=== PATIENT | male | born 1985 | race Caucasian/White ===

== ENCOUNTER 2021-02-13 08:22 | Outpatient (CLI) | payer OTHER ==
[2021-02-13 08:57] VITALS: BP 132/90
--- NOTE | 2021-02-13 08:57 | SLEEP CARE CONSULTATION ---
Information from patient questionnaire entered by Maira Chamorro. I have reviewed and concur with the information entered by Maira Chamorro. This document represents the service I personally performed and the decisions made by me, Yolanda Richardson ARNP. History of Present Illness Service Date and Time: 02/13/2021821 Reason for Visit: New patient Chief Complaint: reports: Unrefreshed sleep, Snoring, Excessive daytime sleepiness (especially in the late afternoon or evening), Observed pauses in breathing, Frequent awakenings at night. denies: Insomnia, Fatigue Date of Onset: at least 2 years Usual bedtime: 9:30 - 10:30 pm Time it takes to fall asleep: 5 minutes Snores at night: Yes Observed to quit breathing while asleep: Yes Sleeps alone due to snoring: No Number of times waking at night: 1-3 times Reasons for waking at night: reports: Choking, Snoring, Gasping for air, Bathroom Toss, Turn, or Twitch while sleeping: Yes Recalls having dreams: Yes Usually gets out of bed at: 5:30-6 am; weekends maybe [id number] Feels refreshed in the morning: No Morning headache: No Sleepy or fatigued during the day: Yes Ever fallen asleep while driving: No Takes day naps: Yes (maybe couple times a week) Dreams during day naps: No Prior sleep studies: No Additional HPI information: I had the pleasure of seeing ADRIEL COPPOLA today regarding the possibility of him having a sleep disorder. His current complaints are observed pauses in breathing, snoring and unrefreshed sleep. He states his significant other has noted his stop breathing and also making strange sounds that is loud snoring and mild gasping in his sleep. He will wake up coughing, choking too. He has a very physical job that is also mentally stressful. His significant other thinks it has been getting worse over the last 2 years. She is about to have a baby in just over a week. He has no family history of sleep disorders. 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 Patient is Single and lives in [place]. Have you smoked in the past 12 months: No (He vapes) Cigarettes per day (20/pack): 7 Years of smokin Quit date: 08/2018 Smoking Pack Years: 3.0 Alcohol use: Yes Alcohol amount and frequency: 1-2 drinks a month Caffeine use: Yes Caffeine amount and frequency: 2 cups every day Family History Family history of sleep disordered breathing: Yes Family Hx Sleep Apnea: Mother: Snoring, Father: Snoring, Sibling: Snoring, Grandparent: Snoring Allergies and Home Medications Drug allergies reviewed: Yes (NKDA) Home medication list reviewed: Yes (no daily medications) Review of Systems Weight gain over past 5 years: 20 Cardiovascular: denies: high blood pressure Gastrointestinal: reports: abdominal pain. denies: heartburn Neurological: denies: headaches Psychiatric: denies: Attention Deficit Hyperactivity, anxiety, depression Ear/Nose/Throat: reports: nose bleeds, wisdom teeth removed. denies: tonsillectomy Musculoskeletal: reports: neck pain, back pain Immunologic: denies: allergies to food or environment Physical Exam Blood Pressure: 132/90 Cuff size: long Heart Rate: 78 O2 Saturation: 98 Height: 5 ft 8 in Weight: 187 lb Body Mass Index: 28.4 BMI Classification: Overweight Neck circumference: 15 (inches) Mouth and throat: narrow oropharynx Soft palate: long Hard palate: arched Uvula visualization: 50% Mallampati Class II Tongue: normal in size Tonsils: 1+ Chin and jaw: normal size and position Neck: normal w/o lymphadenopathy or thyromegaly Heart: regular rate and rhythm Lungs: clear bilaterally Impression and Plan 1. Suspected Obstructive Sleep Apnea-Hypopnea Syndrome, as suggested by a history of loud and irregular snoring, observed cessation of breath while as leep, gasping or choking in sleep, frequent awakening during the night, unrefreshed sleep, and excessive daytime sleepiness. Narrow oropharynx and obesity are common predisposing factors for obstructive sleep apnea-hypopnea syndrome. I recommend proceeding to polysomnography to confirm the diagnosis and to assess severity. If the patient has significant sleep disordered breathing, a manual CPAP titration study will also be performed to find the optimal treatment pressure. I informed the patient of what the sleep studies involve and after some discussion, obtained agreement to proceed. The pathophysiology of obstructive sleep apnea-hypopnea syndrome was discussed with the patient and health risks of cardiovascular and cerebrovascular disease if not treated. Risks of drowsy driving discussed in detail and patient advised to avoid long distance driving and to socket puller at the first sign of drowsiness. Patient agreed to plan. * Schedule polysomnography +- manual CPAP titration study and return in 1-2 weeks after the study to discuss result and initiate therapy. * Avoid long distance driving or driving when feeling sleepy. * Avoid alcohol, sedative and muscle relaxant around bedtime. * Attempt to lose weight. * Review instructions provided by trained office staff on how to prepare for the sleep study. * Return for follow-up after sleep study completed. Counseling Topics: Weight loss health impact Visit Type: In Office Time Spent with Patient (minutes): 31 Provider Statement: I spent 100% of the Face to Face Visit with the patient with greater than 50% spent counseling the patient and coordination of care.
== END 2021-02-13 08:23 | disposition home or self-care (01) ==
LOC: SC 08:22
PROVIDERS: ATTEND Nurse Practitioner Family
DX: G47.10 Hypersomnia, unspecified (principal); R06.81 Apnea, not elsewhere classified; G47.8 Other sleep disorders; R06.83 Snoring; Z87.891 Personal history of nicotine dependence; E66.3 Overweight; Z68.28 Body mass index [BMI] 28.0-28.9, adult
CPT/HCPCS: 99203; 99212

== ENCOUNTER 2021-03-01 07:25 | Outpatient (CLI) | payer OTHER ==
--- NOTE | 2021-03-01 09:52 | Ultrasound Report ---
PROCEDURE: Abdomen Limited INDICATIONS: Epigastric abdominal pain TECHNIQUE: Real-time focused scanning was performed of the abdomen, with image documentation. COMPARISON: None FINDINGS: The gallbladder is normally distended without wall thickening or pericholecystic fluid. Th ere is layering sludge dependently. Several tiny mobile gallstones are present measuring up to 4-5 mm . Mildly increased hepatic parenchymal echogenicity indicative of at least mild hepatic steatosis. Vi sualized portions of the pancreas are within normal limits. There is no pancreatic or biliary ductal dilatation. The right kidney is unremarkable. IMPRESSION: Cholelithiasis and gallbladder sludge. No findings of cholecystitis. Mild hepatic steatosis. Reviewed by: Robb Lucas MD on 03/01/2021 9:51 AM PDT Approved by: Robb Lucas MD on 03/01/2021 9:51 AM PDT Station ID: [id number]
== END 2021-03-01 07:26 | disposition home or self-care (01) ==
LOC: DI 07:25
PROVIDERS: ATTEND Physician Assistant
DX: D58.0 Hereditary spherocytosis (principal); R10.13 Epigastric pain; R10.11 Right upper quadrant pain; R11.0 Nausea; K80.20 Calculus of gallbladder without cholecystitis without obstruction; K76.0 Fatty (change of) liver, not elsewhere classified

== ENCOUNTER 2021-04-12 20:30 | Outpatient (CLI) | payer OTHER | END 2021-04-12 20:31 | disposition home or self-care (01) | LOC: SC 20:30 | PROVIDERS: ATTEND Nurse Practitioner Family | DX: G47.10 Hypersomnia, unspecified (principal); G47.8 Other sleep disorders; R06.81 Apnea, not elsewhere classified; R06.83 Snoring; E66.3 Overweight; Z68.28 Body mass index [BMI] 28.0-28.9, adult | CPT/HCPCS: 95810 ==

== ENCOUNTER 2021-04-30 10:36 | Outpatient (CLI) | payer OTHER ==
--- NOTE | 2021-04-30 10:47 | SLEEP CARE CONSULTATION ---
Information from patient questionnaire entered by Maira Chamorro. I have reviewed and concur with the information entered by Maira Chamorro. This document represents the service I personally performed and the decisions made by , Yolanda Richardson ARNP. History of Present Illness Service Date and Time: 04/30/2021 1036 Initial G[place] Sleepiness Scale score: 11 (in 2020) Current Garrison Sleepiness Scale score: 10 Additional HPI information: ADRIEL COPPOLA returns via Telehealth visit for follow up and results of the recently performed polysomnography. The patient was informed of the following findings: Patient had no significant sleep disordered breathing with an AHI of 1.2 and a dennis oxygen saturation of 90%. I explained the pathophysiology behind obstructive sleep apnea. Patient does not have sleep apnea and was advised how weight gain could increase the risk of developing sleep apnea in the future. I strongly encouraged the patient to lose weight. Patient has light to moderate snoring. Snoring can be reduced by weight loss. Weight loss is best achieved with diet consult. Patient instructed to contact PCP for referral. Snoring can also be treated with an oral appliance from a dentist. Advised to check insurance coverage. In addition, an ENT evaluation can be do to see if other treatment is indicated. Patient counseled not drink alcohol less than 4 hours before bedtime as it can increase snoring and apnea. Patient was cautioned about risks of drowsy driving until sleepiness symptoms resolve. Sleep Study - Results Type of Sleep Study: Polysomnography Prior sleep studies: No Polysomnography/Home Sleep Study results: IMPRESSION: The quality of the study is good. The patient had normal sleep efficiency. The sleep architecture was normal as well. Respiratory monitoring showed no significant sleep disordered breathing (AHI = 1.2) or hypoxia (dennis oxygen saturation of 90%). The patient only slept supine during this study (supine AHI = 1.2; nonsupine = 0.00). Snore was light to moderate in intensity. There was no significant periodic leg movement of sleep. Cardiac rhythm was normal sinus rhythm without significant arrhythmia. No abnormal behavior (parasomnia) observed during the night. CONCLUSIONS and RECOMMENDATIONS: 1. This is a normal in-laboratory polysomnography. Allergies and Home Medications Home medication list reviewed: Yes (no changes) Review of Systems Review of systems same as previous: Yes (no changes) Physical Exam Vital signs obtained and entered by: Telehealth visit to reduce exposure during Covid pandemic Height: 5 ft 8 in Impression and Plan Snoring but no significant sleep disordered breathing. Patient advised that often weight loss will reduce snoring as well as apnea risk. An oral appliance can also be used for snoring. This would require a dental consultation. Patient cautioned not to use other online appliances as can cause bite issues. A list of accredited dentists in [facility] and one local dentist who makes oral appliances is available in the office. Patient is advised to check if insurance will cover. An ENT consult can also be helpful to determine if any other treatment is an option. * Attempt to lose weight * Avoid alcohol consumption near bedtime * The patient is cautioned about driving until sleepiness is completely resolved. * Return as needed. Counseling Topics: Weight loss health impact, Weight control Visit Type: Telehealth Video Video Type: VSee Patient Location: Home Location of Provider: Office Patient agrees and consents to this telehealth visit type: Yes Patient agrees to have their insurance billed: Yes Time Spent with Patient (minutes): 10 Provider Statement: I spent 100% of the Telehealth Video Call with the patient with greater than 50% spent counseling the patient and coordination of care.
== END 2021-04-30 10:37 | disposition home or self-care (01) ==
LOC: SC 10:36
PROVIDERS: ATTEND Nurse Practitioner Family
DX: R06.83 Snoring (principal)

== ENCOUNTER 2021-06-07 16:35 | Outpatient (CLI) | payer OTHER | END 2021-06-07 16:36 | disposition home or self-care (01) | LOC: COV 16:35 | PROVIDERS: ATTEND Surgery | DX: Z01.812 Encounter for preprocedural laboratory examination (principal); Z20.822 Contact with and (suspected) exposure to COVID-19 ==

== ENCOUNTER 2021-06-12 09:43 | Day surgery (SDC) | payer OTHER ==
[~2021-06-12 09:43] MED LIST: CEFAZOLIN SODIUM IN 0.9 % NACL 2 GM/100 ML BAG IV ONE
[2021-06-12] MEDS ORDERED: LACTATED RINGERS 1,000 ML IV ONE ×2 (09:53→13:13)
--- NOTE | 2021-06-12 10:24 | ANESTHESIA ---
Pre-Anesthesia VS, & Labs - Diagnosis chronic cholecystitis - Procedure lap jose Vital Signs: Temp Pulse Resp BP Pulse Ox 36.8 C 79 16 136/70 H 100 06/12/21 09:53 06/12/21 09:53 06/12/21 09:53 06/12/21 09:53 06/12/21 09:53 Height: 5 ft 8 in Weight (kg): 82.3 kg Body Mass Index: 27.6 BMI Classification: Overweight - NPO >8 hours Home Medications and Allergies Home Medications: Ambulatory Orders No Known Home Medications 06/04/21 No Known Home Medications 06/04/21 Allergies/Adverse Reactions: Allergies Allergy/AdvReac Type Severity Reaction Status Date / Time No Known Drug Allergies Allergy Verified 06/04/21 14:49 Anes History & Medical History - Anesthetic History Family history of Anesthesia Complications: Denies Family history of Malignant Hyperthermia: Denies - Medical History Cardiovascular: reports: None Pulmonary: reports: None Gastrointestinal: reports: None Urinary: reports: None Neuro: reports: None Musculoskeletal: reports: None Endocrine/Autoimmune: reports: None Blood Disorders: reports: Anemia (hereditary spherocytosis- no recent symptoms.) Skin: reports: None Smoking Status: Current every day smoker (vapes daily) Psychosocial: reports: No issues indicated History of Cancer?: No Exam General: Alert, Oriented x3, Cooperative, No acute distress Dental: WNL Mouth Openin Fingerbreadth Neck Mobility: Normal Mallampati classification: I Thyromental Distance: 4-6 cm Respiratory: Lungs clear, Normal breath sounds, No respiratory distress, No accessory muscle use Cardiovascular: Regular rate, Normal S1, Normal S2, No murmurs Mental/Cognitive Status: Alert/Oriented X3, Normal for patient Plan Anesthesia Type: General Consent for Procedure(s) Verified and Reviewed: Yes Code Status: Attempt Resuscitation ASA classification: 2-Mild systemic disease Is this case an emergency?: No
[2021-06-12] MEDS ORDERED: NALOXONE 0.4 MG/ML VIAL IVP PRN (10:33)
[2021-06-12] MEDS ORDERED: ATROPINE ABBOJECT 1 MG/10 ML SYRINGE IVP PRN (10:33)
[2021-06-12] MEDS ORDERED: HYDROmorphone 0.5 MG/0.5 ML SYRINGE IVP PRN (10:33)
[2021-06-12] MEDS ORDERED: MORPHINE 2 MG/ML CARPUJECT IVP PRN (10:33)
[2021-06-12] MEDS ORDERED: ONDANSETRON 4 MG/2 ML VIAL IVP PRN ×2 (10:33→13:22)
[2021-06-12] MEDS ORDERED: fentaNYL 100 MCG/2 ML VIAL IVP PRN (10:33)
[2021-06-12] MEDS ORDERED: BUPIVACAINE 0.25% PF 30 ML VIAL ONE (10:35)
[2021-06-12] MEDS ORDERED: LACTATED RINGERS 1,000 ML IV SCH (11:00)
[2021-06-12] MEDS ORDERED: MIDAZOLAM 2 MG/2 ML VIAL ONE (11:32)
[2021-06-12] MEDS ORDERED: fentaNYL 100 MCG/2 ML VIAL ONE (11:32)
[2021-06-12] MEDS ORDERED: PROPOFOL 200 MG/20 ML VIAL IVP ONE ×2 (11:32→12:39)
[2021-06-12] MEDS ORDERED: ROCURONIUM 50 MG/5 ML VIAL ONE (11:32)
[2021-06-12] MEDS ORDERED: LIDOCAINE-MPF 2% 5 ML VIAL ONE (11:32)
[2021-06-12] MEDS ORDERED: ONDANSETRON 4 MG/2 ML VIAL ONE ×2 (11:41→14:14)
[2021-06-12] MEDS ORDERED: DEXAMETHASONE 4 MG/ML VIAL ONE (11:41)
--- NOTE | 2021-06-12 11:45 | HISTORY & PHYSICAL EXAMINATION ---
Chief Complaint - Chief Complaint Chief Complaint: history epigastric/ ruq pain History of Present Illness - History Obtained From Records Reviewed: yes History obtained from: pt Exam Limitations: none - History of Present Illness HPI Comment/Other: He has had several attacks of biliary cholic. No signs or symptoms of choledocholithiasis History - Past Medical History Cardiovascular: reports: None Respiratory: reports: None Neuro: reports: None Endocrine/Autoimmune: reports: None GI: reports: None : reports: None HEENT: reports: Chronic vision loss Psych: reports: None Musculoskeletal: reports: None Derm: reports: None MRSA Hx?: No Meds/Allgy - Home Medications Home Medications: Ambulatory Orders Medication Instructions Recorded Confirmed No Known Home Medications 06/04/21 06/04/21 - Allergies Allergies/Adverse Reactions: Allergies Allergy/AdvReac Type Severity Reaction Status Date / Time No Known Drug Allergies Allergy Verified 06/04/21 14:49 Review of Systems - Other Findings Other Findings: 10 pt ros as above otherwise unremarkable Exam - Vital Signs Reviewed Vital Signs: Yes Vital Signs: Vital Signs x48h Temp Pulse Resp BP Pulse Ox 06/12/21 09:53 36.8 C 79 16 136/70 H 100 - Physical Exam General Appearance: positive: No acute distress, Alert Eyes Bilateral: positive: PERRL, EOMI, No scleral icterus ENT: positive: No signs of dehydration Neck: positive: No JVD Respiratory: positive: No respiratory distress, Breath sounds nml Cardiovascular: positive: Regular rate & rhythm Abdomen: positive: Non-tender, No distention Neurologic/Psychiatric: positive: Oriented x3 Conclusion/Plan - Problem List (1) Chronic cholecystitis Conclusion/Plan: plan hector frey held and consent obtained
[2021-06-12] MEDS ORDERED: BUPIVACAINE 0.25% PF 30 ML VIAL SUBQ ONE (12:19)
[2021-06-12] MEDS ORDERED: ACETAMINOPHEN 1,000 MG/100 ML 100 ML IV ONE (12:30)
[2021-06-12] MEDS ORDERED: SUGAMMADEX 200 MG/2 ML VIAL IVP ONE (12:34)
[2021-06-12] MEDS ORDERED: KETOROLAC 30 MG/ML VIAL ONE (12:43)
[2021-06-12] MEDS ORDERED: HYDROcod/ACETAM 5/325 MG TABLET PO PRN (13:22)
--- NOTE | 2021-06-12 13:33 | OPERATIVE REPORT ---
Operative Report - General Procedure Date: 06/12/21 Planned Procedure: laparoscopic cholecystectomy Pre-Op Diagnosis: chronic cholecystitis Procedure Performed: laparoscopic cholecystectomy Post Op Diagnosis: chronic cholecystitis - Procedure Note Primary Surgeon: boy matthews md Anesthesia Technique: General ET tube, Local Pathology: gallbladder Estimated Blood Loss (mL): 5 Drain/Tube Type: Other (none) Indications: gallbladder pain Findings: tight distended gallbladder and mildly enlarged spleen Complications: none - Other Other Information/Narrative: The patient was properly identified, brought to the operating room and placed in supine position. Sequential compression devices were placed. General endotracheal anesthesia was induced. The patient was prepped and draped in a sterile fashion and given preoperative antibiotics. Local anesthetic was given to incision areas. An incision was made in the periumbilical area. Dissection proceeded down to fascia. The fascia was incised lifted upwards and abdomen entered with a Veress needle. CO2 was insufflated to a pressure of 15. An 11 mm trocar followed by a 30 degree scope was placed. There was no evidence of injury from Veress needle or trocar placement. Under direct vision 2 5 mm trochars were placed in the right upper quadrant and an 11 mm trocar was placed in the epigastrium. Body of the gallbladder was retracted anterior. Lateral attachments were partially taken down further mobilizing the gallbladder more anterior and away from the duodenum. The infundibulum of the gallbladder was then retracted right lateral and caudad. With minimal use of cautery a large bare cystic plate area or window was carefully created. The cystic duct was inspected from right lateral and left lateral positions. [] The cystic duct was then clipped at the gallbladder and 3 times slightly proximal and sharply divided. The cystic artery was clipped at the gallbladder and then 2 times s lightly proximal and sharply divided. The gallbladder was mobilized off from the bed of the liver with hook cautery. The gallbladder was placed in Endo Catch bag and brought out through the epigastric trocar site. Hemostasis was assured. Trochars were removed under direct vision. Fascia at the larger trocar sites was closed with [id number] are running 0 Vicryl suture. Subcutaneous tissue was irrigated and skin closed with interrupted 4-0 Monocryl. Dressings were applied. Patient tolerated the procedure well was awakened and brought to recovery in good condition.
[2021-06-12] MEDS ORDERED: HYDROcod/ACETAM 5/325 MG TABLET ONE (14:25)
[2021-06-12 15:39] VITALS: BP 111/70
--- NOTE | 2021-06-12 16:36 | ANESTHESIA POST OP EVALUATION ---
Anesthesia Post Eval - Post Anesthesia Eval Vitals: Last Vital Signs Temp 36.7 C 06/12/21 15:15 Pulse 69 06/12/21 15:15 Resp 16 06/12/21 15:15 BP 111/70 06/12/21 15:15 Pulse Ox 100 06/12/21 15:15 CV Function Including HR & BP: Stable Pain Control: Satisfactory Nausea & Vomiting: Negative Mental Status: Baseline Respiratory Status: Airway Patent Hydration Status: Satisfactory Anesthesia Complications: None
== END 2021-06-12 09:44 | disposition home or self-care (01) ==
LOC: SDS 09:43
PROVIDERS: ATTEND Surgery
PROC: 0FT44ZZ Resection of Gallbladder, Percutaneous Endoscopic Approach (ICD-10-PCS; principal; 2021-06-12 10:45)
DX: K80.10 Calculus of gallbladder with chronic cholecystitis without obstruction (principal); F17.290 Nicotine dependence, other tobacco product, uncomplicated
CPT/HCPCS: 47562; A9270; J0131; J0690; J7120

== ENCOUNTER 2023-07-23 08:19 | Outpatient (CLI) | payer OTHER ==
--- NOTE | 2023-07-24 00:20 | Ultrasound Report ---
PROCEDURE: Abdomen Limited INDICATIONS: SPLENOMEGALY TECHNIQUE: Real-time focused scanning was performed of the abdomen, with image documentation. COMPARISONS: None. FINDINGS: Spleen is increased in size and measures measures up to 16.5 cm with an estimated volume of 680 mL. P arenchyma is homogeneous. No focal splenic mass. IMPRESSION: Splenomegaly Reviewed by: Neelima Mendez MD on 07/24/2023 12:19 AM PDT Approved by: Neelima Mendez MD on 07/24/2023 12:19 AM PDT Station ID: [id number]
== END 2023-07-23 08:20 | disposition home or self-care (01) ==
LOC: DI 08:19
PROVIDERS: ATTEND Physician Assistant
DX: R16.1 Splenomegaly, not elsewhere classified (principal)